=== PATIENT | male | born 1960 | race Caucasian/White ===

== ENCOUNTER 2017-01-30 14:40 | Emergency (ER) | payer SELFPAY ==
[~2017-01-30 14:40] MED LIST: Iopamidol 370 76% 100 ML VIAL ONE
[2017-01-30 15:08] LABS: #Basophils 0.1 thou/uL (0.0-0.2); #Eosinphils 0.1 thou/uL (0.0-0.7); #Lymphocytes 1.9 thou/uL (1.20-3.40); #Monocytes 0.6 thou/uL (0.11-0.59); #Neutrophils 10.5 thou/uL (1.40-6.50); %Eosinophils 0.8 % (0.0-10.0); %Lymphocytes 14.6 % (21.0-51.0); %Monocytes 4.8 % (0.0-10.0); %Neutrophils 78.8 % (42.0-75.0); Hemoglobin 12.7 g/dL (14.0-18.0); Mean Corpuscular HGB CONC 33.7 g/dL (32.0-36.0); Mean Corpuscular Hemoglobin 30.3 pg (27.0-31.0); Platelet Count 210 thou/uL (130-400); RBC Distribution Width 13.9 % (11.5-14.5); White Blood Cell (WBC) Count 13.3 thou/uL (4.8-10.8)
[2017-01-30] MEDS ORDERED: Fentanyl 100 MCG/2 ML VIAL ONE (15:18)
[2017-01-30 15:23] LABS: ALT (SGPT) 178 U/L (8-55); AST (SGOT) 253 U/L (5-34); Albumin 3.8 g/dL (3.5-5.0); Alkaline Phosphatase 69 U/L (40-150); Anion Gap 18 mmol/L (10-20); BUN (Urea Nitrogen) 20 mg/dL (8.4-25.7); Bilirubin, Total 0.7 mg/dL (0.2-1.2); Calc. Creatinine Clearance 0 mL/min (70-130); Carbon Dioxide 16 mmol/L (22-29); Chloride 108 mmol/L (98-107); Estimated GFR-MDRD 61; Globulin 3.5 g/dL (2.4-3.5); Glucose 265 mg/dL (70-105); Lipase 46 U/L (8-78); Potassium 4.2 mmol/L (3.5-5.1); Protein, Total 7.3 g/dL (6.0-8.3); Sodium 138 mmol/L (136-145)
[2017-01-30] MEDS ORDERED: Lidocaine 1% w/Epinephrine 1:100K 20 ML VIAL ONE ×2 (15:24→15:40)
[2017-01-30] MEDS ORDERED: Adacel (T-DAP) 0.5 ML VIAL ONE (15:31)
[2017-01-30] MEDS ORDERED: HYDROmorphone 2 MG TAB ONE (15:52)
[2017-01-30] MEDS ORDERED: Midazolam HCl 2 mg/2 ml Vial ONE (15:55)
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
--- NOTE | 2017-01-30 16:10 | CT ---
CT CERVICAL SPINE: History: Trauma. Technique: Axial images are obtained with sagittal and coronal reconstructions. FINDINGS: Images demonstrate anterior osteophytes with changes of spondylosis at the C4-5 and C5-6 level. No e vidence of acute fracture is seen. Cervical spine demonstrates no significant evidence of acute bony lesions. Incidentally noted right sided pneumothorax is seen. Fracture is seen involving the comptometrist ior aspect of the right third and fourth ribs. Please see accompanying CT chest report. There is also a hematoma along the right scalene muscles. POS: [facility]
[2017-01-30] MEDS ORDERED: Clindamycin 300 MG/2 ML VIAL ONE (16:15)
[2017-01-30] MEDS ORDERED: Sodium Chloride 0.9% 100 ML ONE (16:18)
[2017-01-30] MEDS ORDERED: Ondansetron HCl/PF 4 MG/2 ML Vial ONE (16:35)
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
[2017-01-30 17:04] LABS: Bilirubin Negative (Negative); Blood, Urine Large (Negative); Clarity Clear (Clear); Glucose, Urine (Dipstick) 100 mg/dL (Negative); Leukocyte Negative (Negative); Nitrite Negative (Negative); Protein, Urine (Dipstick) 100 mg/dL (Neg-Trace); Specific Gravity, Urine 1.025 (1.005-1.030); Urobilinogen 0.2 mg/dL (0.2-1.0); pH, Urine 5.5 (5.0-9.0)
[2017-01-30 17:06] LABS: Bacteria/HPF None Seen HPF (None Seen); RBC/HPF GREATER THAN 50-TNTC HPF (0-3); Squamous Epithelial 0-3 HPF (0-3); WBC/HPF 0-3 HPF (0-3)
--- NOTE | 2017-01-30 17:40 | RAD ---
TWO AP VIEWS OF THE CHEST: History: Chest tube placement. FINDINGS: AP chest obtained. There has been placement of a right sided chest tube. Previously noted right side d pneumothorax appears to have resolved. The right lung appears to have expanded to fill the right c hest cavity. Subcutaneous emphysema is seen. Multiple right sided rib fractures are seen. Right scap ular fracture is difficult to visualize on this portable radiograph. IMPRESSION: Placement of right sided chest. Right lung is re-expanded. POS: [facility]
== END 2017-01-30 16:45 | disposition short-term general hospital (02) ==
LOC: NAV ERS 14:40
DX: S22.5XXA Flail chest, initial encounter for closed fracture (principal); S42.101A Fracture of unspecified part of scapula, right shoulder, initial encounter for closed fracture; S27.2XXA Traumatic hemopneumothorax, initial encounter; E11.9 Type 2 diabetes mellitus without complications; M06.9 Rheumatoid arthritis, unspecified; V29.9XXA Motorcycle rider (driver) (passenger) injured in unspecified traffic accident, initial encounter; Y92.488 Other paved roadways as the place of occurrence of the external cause
CPT/HCPCS: 32551; 36415; 51702; 70450; 71010; 71260; 72125; 74177; 80053; 81003; 81015; 83690; 85025; 90471; 90715; 96361; 96374; 96375; J1170; J2001; J2250; J2405; J3010; J3490